=== PATIENT | male | born 2000 | race Caucasian/White ===

== ENCOUNTER 2022-01-30 19:05 | Emergency (ER) | payer OTHER ==
[~2022-01-30] VITALS: Ht 185.4 cm; Wt 95.5 kg
[2022-01-30 19:06] VITALS: BP 141/79
[2022-01-30] MEDS ORDERED: IBUP1TAB6 PO (19:11)
[2022-01-30] MEDS ORDERED: CEPHALEXIN 500 MG CAP PO ONE (20:10)
[2022-01-30] MEDS ORDERED: CEPH500C PO (20:11)
== END 2022-01-30 21:00 | disposition home or self-care (01) ==
LOC: M ED 19:05 → EDSEX 19:05 → M ED 21:00
DX: J02.9 Acute pharyngitis, unspecified (principal); J03.90 Acute tonsillitis, unspecified; F17.200 Nicotine dependence, unspecified, uncomplicated

== ENCOUNTER 2024-02-21 07:03 | Emergency (ER) | payer OTHER ==
[~2024-02-21] VITALS: Ht 185.4 cm; Wt 90.9 kg
[~2024-02-21 07:03] MED LIST: CEPH500C PO; IBUP1TAB6 PO
[2024-02-21 09:29] VITALS: BP 113/53; TEMP 99.3; O2SAT 98
== END 2024-02-21 09:31 | disposition home or self-care (01) ==
LOC: M ED 07:03
DX: R50.9 Fever, unspecified (principal); B34.1 Enterovirus infection, unspecified; F17.290 Nicotine dependence, other tobacco product, uncomplicated